=== PATIENT | female | born 1945 | race Caucasian/White ===

== ENCOUNTER 2020-12-16 06:00 | Day surgery (SDC) | payer MEDICARE ==
[~2020-12-16 06:00] MED LIST: Lactated Ringers 1,000 ML IV SCH; Lidocaine 1%/Sod Bicarbonate in NS 8.4% 1 ML Syringe IDERM PRN; Sodium Chloride 0.9% 10 ML Syringe FLUSH PRN
[2020-12-16] MEDS ORDERED: Midazolam 1 MG/ML 2 ML SDV ONE (06:22)
[2020-12-16] MEDS ORDERED: fentaNYL 100 MCG/2 ML SDV ONE (06:22)
[2020-12-16] MEDS ORDERED: Propofol 200 MG/20 ML SDV ONE (06:23)
[2020-12-16] MEDS ORDERED: Lidocaine 1% 4 ML ONE (06:24)
[2020-12-16] MEDS ORDERED: ceFAZolin 1 GM Vial ONE (06:26)
[2020-12-16] MEDS ORDERED: EPINEPHrine 1 MG/ML SDV ONE (06:30)
[2020-12-16] MEDS ORDERED: Ropivacaine 0.5% 5 MG/ML 30 ML SDV ONE (06:30)
--- NOTE | 2020-12-16 06:40 | PCM.PREANE ---
Preanesthetic Assessment - Procedure Proposed Procedure: left total knee arthroplasty - Anesthesia/Transfusion/Family Hx Anesthesia History: Prior Anesthesia Without Reaction Family History of Anesthesia Reaction: No Transfusion History: No Prior Transfusion(s) - Review of Systems General: No Symptoms Pulmonary: No Symptoms Cardiovascular: Other (skips beats alot- normal- mild leaky valve) Gastrointestinal: No Symptoms Neurological: No Symptoms Other: Reports: Neck Pain (metal rods and cage around her neck), Depression, Anxiety - Physical Assessment NPO Status Date: 12/15/20 NPO Status Time: 21:30 Vital Signs: 98.5 18 97% 81 142/76 Height: 5 ft 4 in Weight: 97.7 kg ASA Class: 3 Mental Status: Alert & Oriented x3 Airway Class: Mallampati = 2 Dentition: Reports: Missing Tooth/Teeth Thyro-Mental Finger Breadths: 3 Mouth Opening Finger Breadths: 3 ROM/Head Extension: Full Lungs: Clear to Auscultation, Normal Respiratory Effort Cardiovascular: Regular Rate, Regular Rhythm - Allergies Allergies/Adverse Reactions: Allergies Allergy/AdvReac Type Severity Reaction Status Date / Time aluminum Allergy Other Verified 12/13/20 08:52 amoxicillin [From Augmentin] Allergy Rash Verified 12/13/20 08:47 apple Allergy Other Verified 12/13/20 08:47 banana Allergy Other Verified 12/13/20 08:47 clavulanic acid Allergy Rash Verified 12/13/20 08:47 [From Augmentin] cyclobenzaprine Allergy Hallucinati Verified 12/13/20 08:47 ons duloxetine [From Cymbalta] Allergy Hallucinati Verified 12/13/20 08:47 ons erythromycin base Allergy Nausea Verified 12/13/20 08:47 latex Allergy Swelling Verified 12/13/20 08:47 nickel Allergy Other Verified 12/13/20 08:52 nitrous oxide Allergy Headache Verified 12/13/20 08:47 nut - unspecified Allergy Other Verified 12/13/20 08:47 pear Allergy Other Verified 12/13/20 08:47 Sulfa (Sulfonamide Allergy Rash Verified 12/13/20 08:47 Antibiotics) - Blood Blood Available: No - Acknowledgements Anesthesia Type Planned: General Anesthesia Pt an Appropriate Candidate for the Planned Anesthesia: Yes Alternatives and Risks of Anesthesia Discussed w Pt/Guardian: Yes Pt/Guardian Understands and Agrees with Anesthesia Plan: Yes PreAnesthesia Questionnaire HEENT History: Reports: Other (See Below) Other HEENT History: allergic rhinitis, left eye herpes Cardiovascular History: Reports: High Cholesterol, Hypertension Other Cardiovascular History: chest tightness, high lipids Respiratory History: Reports: Asthma Gastrointestinal History: Reports: GERD Other Gastrointestinal History: stomach polyps, GB polyp Musculoskeletal History: Reports: Fibromyalgia Other Musculoskeletal History: right foot surgery, low back pain, bilateral knee pain, ganglion cyst Other Neuro History: c5, c6, c7 fusions, l2/l3 dissectomy, chronic neck pain, chiari malformation Psychiatric History: Reports: Anxiety, Depression Endocrine/Metabolic History: Reports: Obesity/BMI 30+ Hematologic History: Reports: Anemia Oncologic (Cancer) History: Reports: Breast Other Oncologic History: right breast cancer 2014 - Past Surgical History HEENT Surgical History: Reports: Oral Surgery GI Surgical History: Reports: Appendectomy Female Surgical History: Reports: Breast Biopsy, Hysterectomy Neurological Surgical History: Reports: C-Spine, Lumbar Spine, Spinal Fusion, Other (See Below) (5 back surgeries) Musculoskeletal Surgical History: Reports: Other (See Below) (foot surgery) - SUBSTANCE USE Tobacco Use Status *Q: Never Tobacco User Tobacco Use Within Last Twelve Months: No Second Hand Smoke Exposure: Yes Days Per Week of Alcohol Use: 0 Recreational Drug Use History: No - HOME MEDS Home Medications: Home Meds Albuterol [Ventolin HFA] 1 puff INH QID 12/13/20 [History] Apixaban [Eliquis] 2.5 mg PO BID #60 tablet 12/13/20 [Rx] Cayenne 1 tab PO DAILY 12/13/20 [History] Cetirizine [ZyrTEC] 10 mg PO DAILY 12/13/20 [History] DULoxetine [Cymbalta] 60 mg PO DAILY 12/13/20 [History] Flunisolide 1 spray .XX ASDIRECTED PRN 12/13/20 [History] Furosemide [Lasix] 20 mg PO DAILY 12/13/20 [History] Lisinopril/Hydrochlorothiazide [Lisinopril-Hctz 20-25 mg Tab] 1 mg PO DAILY 12/13/20 [History] Rosuvastatin Calcium 20 mg PO DAILY 12/13/20 [History] Ubidecarenone [COQ-10] 1 tab PO DAILY 12/13/20 [History] oxyCODONE 5 - 10 mg PO Q4H PRN #40 tab 12/13/20 [Rx] - CURRENT (IN HOUSE) MEDS Current Meds: Current Medications Morphine Sulfate 8 mg/Epinephrine HCl 0.3 mg/Cefuroxime Sodium 750 mg/Ketorolac Tromethamine 30 mg/Sodium Chloride 7.9 ml 0 mg .XX ASDIRECTED PRN PRN Reason: Pain Stop: 12/16/20 16:00 Lactated Ringer's (Ringers, Lactated) 1,000 mls @ 125 mls/hr IV ASDIRECTED JOSE R Stop: 12/16/20 23:00 Lidocaine/Sodium Bicarbonate (Lidocaine 1%/Sod Bicarbonate In Ns 8.4% 1 Ml Syringe) 0.25 ml IDERM ONETIME PRN PRN Reason: Prior to IV Start Stop: 12/16/20 18:00 Sodium Chloride (Sodium Chloride 0.9% 10 Ml Syringe) 10 ml FLUSH ASDIRECTED PRN PRN Reason: Keep Vein Open Stop: 12/16/20 18:00 Discontinued Medications Cefazolin Sodium (Cefazolin 1 Gm Vial) Confirm Administered Dose 2 gm .ROUTE .STK-MED ONE Stop: 12/16/20 06:27 Epinephrine HCl (Epinephrine 1 Mg/Ml Sdv) Confirm Administered Dose 1 mg .ROUTE .STK-MED ONE Stop: 12/16/20 06:31 Fentanyl (Fentanyl 100 Mcg/2 Ml Sdv) Confirm Administered Dose 100 mcg .ROUTE .STK-MED ONE Stop: 12/16/20 06:23 Lidocaine HCl (Xylocaine-Mpf 1%) Confirm Administered Dose 4 mls @ as directed .ROUTE .STK-MED ONE Stop: 12/16/20 06:25 Midazolam HCl (Midazolam 1 Mg/Ml 2 Ml Sdv) Confirm Administered Dose 2 mg .ROUTE .STK-MED ONE Stop: 12/16/20 06:23 Propofol (Propofol 200 Mg/20 Ml Sdv) Confirm Administered Dose 200 mg .ROUTE .STK-MED ONE Stop: 12/16/20 06:24 Ropivacaine (Ropivacaine 0.5% 5 Mg/Ml 30 Ml Sdv) Confirm Administered Dose 30 ml .ROUTE .STK-MED ONE Stop: 12/16/20 06:31 Tranexamic Acid (Tranexamic Acid 1,000 Mg/10 Ml Amp) Confirm Administered Dose 1,000 mg .ROUTE .STK-MED ONE Stop: 12/16/20 06:26 Vancomycin HCl (Vancomycin 1 Gm Sdv) Confirm Administered Dose 1 gm .ROUTE .[facility]- MED ONE Stop: 12/16/20 06:26
[2020-12-16] MEDS ORDERED: Ketamine 500 mg/10 ML MDV ONE (06:54)
[2020-12-16] MEDS ORDERED: fentaNYL 250 MCG/5 ML SDV ONE (06:54)
[2020-12-16] MEDS ORDERED: Rocuronium 50 MG/5 ML Vial ONE (07:04)
[2020-12-16] MEDS ORDERED: Ondansetron 4 MG/2 ML SDV ONE (07:17)
[2020-12-16] MEDS ORDERED: Lactated Ringers 1,000 ML ONE ×2 (07:22→08:29)
[2020-12-16] MEDS ORDERED: Ondansetron 4 MG/2 ML SDV IVPUSH PRN (07:25)
[2020-12-16] MEDS ORDERED: HYDROmorphone 0.5 MG/0.5 ML Syringe ONE (08:00)
[2020-12-16] MEDS: Morphine 8 MG, EPINEPHrine 0.3 MG, Cefuroxime 750 MG, Ketorolac 30 MG, Sodium Chloride ... PRN ×10 (08:01→08:14)
[2020-12-16] MEDS: Vancomycin 1 GM SDV ONE ×2 (08:01→08:22)
[2020-12-16] MEDS ORDERED: Lidocaine 1% 2 ML ONE (08:30)
[2020-12-16] MEDS ORDERED: Cyclobenzaprine 10 MG Tab PO SCH (08:39)
[2020-12-16] MEDS ORDERED: oxyCODONE 5 MG Tab PO PRN (08:39)
--- NOTE | 2020-12-16 08:51 | PCM.POSTAN ---
POST ANESTHESIA ASSESSMENT - MENTAL STATUS Mental Status: Somnolent - VITAL SIGNS Vital Signs: Last Vital Signs Temp 98.5 F 12/16/20 06:30 Pulse 81 12/16/20 06:30 Resp 18 12/16/20 06:30 BP 142/76 H 12/16/20 06:30 Pulse Ox 97 12/16/20 06:30 0845 83 23 96% 163/67 98.1 - RESPIRATORY Respiratory Status: Respiratory Rate WNL, Airway Patent, O2 Saturation Stable, Supplemental Oxygen - CARDIOVASCULAR CV Status: Pulse Rate WNL, Blood Pressure Stable - GASTROINTESTINAL GI Status: No Symptoms - PAIN Pain Score: 0 (sleepy) - POST OP HYDRATION Hydration Status: Adequate & Stable
[2020-12-16] MEDS: fentaNYL 100 MCG/2 ML SDV IVPUSH PRN ×2 (09:00→09:22)
[2020-12-16] MEDS: HYDROmorphone 0.5 MG/0.5 ML Syringe IVPUSH PRN ×2 (09:05→09:30)
--- NOTE | 2020-12-16 09:10 | PCM.SN.2 ---
- Free Text/Narrative Note: Left selective femoral nerve block at the adductor canal for post-procedure pain control under US guidance requested by Dr. Box. Date: 12/16/20 Time Out: 856 Start: 858 End: 904 Chart reviewed. Consent signed. Questions answered. Appropriate monitors applied. Time out performed. Left mid-shaft femur identified with ultrasound, scanning medially of femur, the femoral artery in the adductor canal visualized, and the femoral nerve located laterally to the artery. The skin was prepped lateral to the ultrasound probe with chlorahexadine times two. 2 ml of 1% lidocaine was given for local anesthetic prior to block needle. The 20 ga 4 insulated block needle was inserted under direct ultrasound guidance into the adductor canal. 25mL of 0.5% ropivacaine with 1:200,000 epinephrine was inject ed circumferentially around the nerve with intermittent negative aspiration noted. Patient tolerated the procedure well. Sterile technique noted along with sterile gloves, mask, and sterile probe cover. See picture on progress note and vital signs on nurses notes. Block completed in PACU. Jorge Bui CRNA Time Documentation
--- NOTE | 2020-12-16 09:59 | CR ---
Left knee: AP and crosstable lateral views of the left knee were obtained. Comparison: Prior left knee CT study of 12/03/20. Knee prosthesis is seen. Components are aligned. Patellar prosthesis is seen. Soft tissue air is noted. Underlying bony structures appear to be intact. Impression: 1. Satisfactory postoperative radiographic appearance of recently placed left knee prostheses. Diagnostic code #2
--- NOTE | 2020-12-16 12:37 | PCM48HPAN ---
Post Anesthesia Note - EVALUATION WITHIN 48HRS OF ANESTHETIC Vital Signs in Normal Range: Yes Patient Participated in Evaluation: Yes Respiratory Function Stable: Yes Airway Patent: Yes Cardiovascular Function Stable: Yes Hydration Status Stable: Yes Pain Control Satisfactory: Yes Nausea and Vomiting Control Satisfactory: Yes Mental Status Recovered: Yes Vital Signs: Last Vital Signs Temp 97.3 F 12/16/20 09:45 Pulse 87 12/16/20 09:45 Resp 13 12/16/20 09:45 BP 113/83 12/16/20 09:45 Pulse Ox 96 12/16/20 09:45 - COMMENTS/OBSERVATIONS Free Text/Narrative:: pain much better after the walk. complains of being very tired after the walk. Slight nausea
--- NOTE | 2020-12-24 17:47 | PCM.OPNOTE ---
- General Post-Op/Procedure Note Date of Surgery/Procedure: 12/16/20 Operative Procedure(s): left total knee arthroplasty with [employer] robot[employer] Pre Op Diagnosis: left knee osteoarthrosis Post-Op Diagnosis: Same Anesthesia Technique: Local, MAC, Spinal Primary Surgeon: Ciro Box Anesthesia Provider: Jorge Bui Certified Professional Controller: Delmi Smith Certified Professional Controller: Tawny Latif EBL in mLs: 250 Complications: None Condition: Good Free Text/Narrative:: 5 femur 4 9mm 35x10
--- NOTE | 2020-12-30 11:50 | OR ---
DATE OF OPERATION: 12/16/2020 SURGEON: Ciro Box MD OPERATION PERFORMED: Left total knee arthroplasty with [employer] robot[employer]. PREOPERATIVE DIAGNOSIS: Left knee osteoarthrosis. POSTOPERATIVE DIAGNOSIS: Left knee osteoarthrosis. ANESTHESIA: Local MAC with spinal. ANESTHESIA PROVIDER: Jorge Bui CRNA ASSISTANTS: Delmi Smith PA-C; and Tawny Latif LPN. ESTIMATED BLOOD LOSS: 250 mL. COMPLICATIONS: None. CONDITION: Stable. IMPLANTS: 1. Parker size 5 press-fit CR femur. 2. Jose size 4 press-fit tibial baseplate. 3. Parker size 4, 9 mm CS polyethylene insert. 4. Jose size 35 x 10 mm press-fit asymmetric patella. DESCRIPTION OF PROCEDURE: The patient was identified in the preoperative holding area. Proper site was marked and identified by the surgeon. The patient was taken back to the operating theater where after adequate anesthesia, the patient had a nonsterile tourniquet applied to left lower extremity. Left lower extremity was then sterilely prepped and draped in the usual sterile fashion. OR time-out was performed. The patient received 2 g IV Ancef. Leg cortez was applied to left lower extremity. Left lower extremity was exsanguinated. Tourniquet was insufflated to 250 mmHg. Standard anterior incision was made. Medial parapatellar arthrotomy was created. Deep fibers of the MCL were raised, and anterior fat pad was resected. Attention was turned to patella. Patella measured 25, resected to 14 for a 35 x 10 mm patella. Drill holes were drilled and found to have adequate bone. Two 4-0 Shantz pins were placed intraincisionally on the femur, 2 more were placed on the tibia 3 fingerbreadths below the tibial tubercle. Jose Gopi robotic arrays were attached. Checkpoints were placed on the femur and the tibia. Hip center rotation was obtained. Medial and lateral malleoli were marked, and checkpoints were marked. 40 points were then obtained off the femur and the tibia for the Parker [employer] robotic plan. The patient's knee was brought into full extension and then 90 degrees of flexion, and varus and valgus stresses were applied. A straight saw blade was then brought in. Tibial cut was completed, anterior femoral cut, anterior chamfer cut, and posterior femoral cuts. Saw blade was then switched, and a Jose Gopi robotic arm was used to complete the distal femoral cut and posterior chamfer cut. All bony fragments were removed. Posterior osteophytes and medial lateral meniscus were removed. Attention was turned to the tibia. Size 4 trial tibia was placed. Size 5 trial femur was placed, a 9 mm trial spacer. The patient's knee was brought into full extension, had no varus-valgus instability with full extension. No signs of liftoff on the femur. Drill holes were drilled for the femur, and tibia was stamped and drilled in proper rotation. At this time, trial implants were removed. A size 4 press-fit tibia was then press-fit into place. A size 5 femur was impacted into place, and a size 4, 9 mm CS polyethylene insert was impacted into place. The patient's knee was brought into full extension, and a 35 x 10 mm press-fit patella was pressed into place. Tourniquet was deflated. Bleeders were cauterized. 1 L of pulse lavage irrigation with Ancef was irrigated through the knee along with 400 mL of IrriSept irrigation. Checkpoints and arrays were removed. Periarticular injection was completed. Topical tranexamic acid and vancomycin powder were applied. A #2 barbed suture was used for closure of the medial parapatellar arthrotomy. 2-0 Vicryl and Stratafix were used for subcutaneous closure and Prineo was used for skin closure. The patient tolerated the procedure well and sent to PACU in stable condition. [email or web address] /[id number]
== END 2020-12-16 14:05 | disposition home or self-care (01) ==
LOC: JD.SDS 06:00
PROVIDERS: ATTEND Orthopaedic Surgery
DX: M17.12 Unilateral primary osteoarthritis, left knee (principal); E66.9 Obesity, unspecified; G47.33 Obstructive sleep apnea (adult) (pediatric); J45.909 Unspecified asthma, uncomplicated; I10 Essential (primary) hypertension; E78.00 Pure hypercholesterolemia, unspecified; Z82.49 Family history of ischemic heart disease and other diseases of the circulatory system; G89.29 Other chronic pain; Z88.2 Allergy status to sulfonamides; Z20.822 Contact with and (suspected) exposure to COVID-19; Z88.8 Allergy status to other drugs, medicaments and biological substances; Z88.5 Allergy status to narcotic agent; Z91.040 Latex allergy status; Z91.048 Other nonmedicinal substance allergy status; Z79.899 Other long term (current) drug therapy; Z90.49 Acquired absence of other specified parts of digestive tract; Z98.890 Other specified postprocedural states; Z68.37 Body mass index [BMI] 37.0-37.9, adult
CPT/HCPCS: 27447; 73560; 97110; 97116; 97161; A9270; C1713; C1776; J0171; J0690; J0697; J1170; J1885; J2250; J2270; J2704; J2795; J3010; J3370; J7120; 01402; 99100; J2405